=== PATIENT | male | born 1995 | race Caucasian/White ===

== ENCOUNTER 2022-03-04 07:36 | Emergency (ER) | payer SELFPAY ==
[2022-03-04 09:04] VITALS: BP 111/70
== END 2022-03-04 08:24 | disposition home or self-care (01) ==
LOC: ED 07:36
DX: S93.401A Sprain of unspecified ligament of right ankle, initial encounter (principal); Z28.310 Unvaccinated for COVID-19; X50.1XXA Overexertion from prolonged static or awkward postures, initial encounter